=== PATIENT | female | born 1985 | race Caucasian/White ===

== ENCOUNTER 2016-09-16 22:51 | Emergency (ER) | payer SELFPAY ==
[2016-09-17] MEDS ORDERED: PREDNISONE 20 MG TABLET PO ONE (00:46)
[2016-09-17 02:07] LABS: ANION GAP 9 (5-19); BLOOD UREA NITROGEN 19 mg/dL (7-20); CALCIUM 9.7 mg/dL (8.4-10.2); CARBON DIOXIDE 26 mmol/L (22-30); CHLORIDE 108 mmol/L (98-107); CREATININE RESULT 0.75 mg/dL (0.52-1.25); GLUCOSE 88 mg/dL (75-110); POTASSIUM 4.8 mmol/L (3.6-5.0); SODIUM 143.3 mmol/L (137-145)
[2016-09-17 02:14] LABS: APPEARANCE,URINE SLIGHTLY-CLOUDY; BILIRUBIN,URINE NEGATIVE (NEGATIVE); GLUCOSE, URINE NEGATIVE (NEGATIVE); KETONES,URINE NEGATIVE (NEGATIVE); LEUKOCYTE ESTERASE,URINE NEGATIVE (NEGATIVE); NITRITE,URINE NEGATIVE (NEGATIVE); PROTEIN,URINE NEGATIVE (NEGATIVE); URINE SPECIFIC GRAVITY 1.026; UROBILINOGEN,URINE NEGATIVE mg/dL (<2.0)
--- NOTE | 2016-09-17 02:18 | ER Document Report ---
ED General - General Chief Complaint: Abdominal Pain Stated Complaint: ABDOMINAL PAIN,SHORTNESS OF BREATH Time Seen by Provider: 09/17/16 00:39 Notes: Patient is a 31-year-old female without past medical history, no prior surgical history who presents with multiple complaints. Patient states that her main concern is that she is intermittently having left middle abdominal discomfort that has occurred approximately 3-4 times in total over the past 5 months. She denies any recent episode and denies any pain at the time of assessment but states that she came to the emergency department because she does not have an alternative primary care doctor wanted to see if she could be evaluated for this chronic problem. She also complains of intermittent discoloration of her urine as well as frequent feelings of anxiety with associated shortness of breath. She denies any pleuritic chest pain, exertional dyspnea, hemoptysis, use of estrogen or history of pulmonary embolus. Denies any vomiting or diarrhea. Does admit that she is frequently constipated. She has not noted anything seems to improve her symptoms only are present other than time and that nothing in particular triggers symptoms. - Related Data Allergies/Adverse Reactions: No Known Allergies Allergy (Verified 09/17/16 02:31) Past Medical History - General Information source: Patient - Social History Smoking Status: Never Smoker Frequency of alcohol use: None Drug Abuse: None Family History: Reviewed & Not Pertinent Renal/ Medical History: Denies: Hx Peritoneal Dialysis Review of Systems - Review of Systems Notes: Constitutional: Negative for fever. HENT: Negative for sore throat. Eyes: Negative for visual changes. Cardiovascular: Negative for chest pain. Respiratory: Negative for shortness of breath. Gastrointestinal: Positive for abdominal pain, negative for vomiting or diarrhea. Genitourinary: Negative for dysuria. Musculoskeletal: Negative for back pain. Skin: Negative for rash. Neurological: Negative for headaches, weakness or numbness. 10 point ROS negative except as marked above and in HPI. Physical Exam - Vital signs Vitals: Temp Pulse Resp BP Pulse Ox 98.1 F 92 18 130/71 H 99 09/16/16 22:55 09/16/16 22:55 09/16/16 22:55 09/16/16 22:55 09/16/16 22:55 Interpretation: Normal Notes: PHYSICAL EXAMINATION: GENERAL: Well-appearing, well-nourished and in no acute distress. HEAD: Atraumatic, normocephalic. EYES: Pupils equal round and reactive to light, extraocular movements intact, sclera anicteric, conjunctiva are normal. ENT: nares patent, oropharynx clear without exudates. Moist mucous membranes. NECK: Normal range of motion, supple without lymphadenopathy LUNGS: Breath sounds clear to auscultation bilaterally and equal. No wheezes rales or rhonchi. HEART: Regular rate and rhythm without murmurs ABDOMEN: Soft, nontender, normoactive bowel sounds. No guarding, no rebound. No masses appreciated. EXTREMITIES: Normal range of motion, no pitting or edema. No cyanosis. NEUROLOGICAL: No focal neurological deficits. Moves all extremities spontaneously and on command. PSYCH: Anxious SKIN: Warm, Dry, normal turgor, no rashes or lesions noted. Course - Re-evaluation Re-evalutation: 09/17/16 02:15 Patient presents with multiple vague complaints that did not appear to be concerning for any acute life-threatening pathology. Patient primarily complains of intermittent left middle abdominal pain over the last 3-4 months. States it is episodic and has not actually happened today, but she wanted to be evaluated. She denies any pain or symptoms beyond anxiety at the time of my assessment. Vitals are within normal limits at triage and at time of discharge. Physical examination is unremarkable. Patient has tolerated oral intake without difficulty. Patient was not noted to be in distress at any point during their ER visit. At this time, based on the reassuring evaluation, I do not suspect an acute MS, pulmonary embolus, aortic dissection, acute intra- abdominal pathology, stroke, or sepsis. Urinalysis clear and BMP without evidence of MALAIKA. Will discharge with return precautions and follow-up recommendations. Verbal discharge instructions given a the bedside and opportunity for questions given. Medication warnings reviewed. Patient is in agreement with this plan and has verbalized understanding of return precautions and the need for primary care follow-up in the next 24-72 hours. - Vital Signs Vital signs: Temp Pulse Resp BP Pulse Ox 97.8 F 77 14 108/79 100 09/17/16 02:24 09/17/16 02:24 09/17/16 02:24 09/17/16 02:24 09/17/16 02:24 - Laboratory Result Diagrams: 09/17/16 01:30 Laboratory results interpreted by me: 09/17/16 09/17/16 01:30 01:30 Chloride 108 H Urine Blood SMALL H Discharge - Discharge Clinical Impression: Intermittent abdominal pain Condition: Good Disposition: HOME, SELF-CARE Additional Instructions: You have been seen in the Emergency Department (ED) for abdominal pain. Your evaluation did not identify a clear cause of your symptoms but was generally reassuring. Your urine, test, and blood work are all normal. Please follow up with your doctor as soon as possible regarding today's emergent visit and the symptoms that are bothering you. Return to the ED if your abdominal pain worsens or fails to improve, you develop bloody vomiting, bloody diarrhea, you are unable to tolerate fluids due to vomiting, fever greater than 101, or other symptoms that concern you.
[2016-09-17 02:30] VITALS: BP 108/79
[2016-09-17] MEDS ORDERED: DIAZEPAM 5 MG TABLET PO ONE (02:49)
== END 2016-09-17 03:09 | disposition home or self-care (01) ==
LOC: ER 22:51
DX: R10.9 Unspecified abdominal pain (principal)
CPT/HCPCS: 36415; 80048; 81001; 81025; 99284

== ENCOUNTER 2016-11-11 15:42 | Emergency (ER) | payer SELFPAY ==
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
[2016-11-11] MEDS ORDERED: LORAZEPAM 1 MG TABLET PO ONE (17:26)
[2016-11-11 18:38] VITALS: BP 126/72
== END 2016-11-11 18:39 | disposition home or self-care (01) ==
LOC: ER 15:42
DX: S05.11XA Contusion of eyeball and orbital tissues, right eye, initial encounter (principal); H11.31 Conjunctival hemorrhage, right eye; H57.12 Ocular pain, left eye; W51.XXXA Accidental striking against or bumped into by another person, initial encounter; F17.200 Nicotine dependence, unspecified, uncomplicated
CPT/HCPCS: 99283